=== PATIENT | female | born 1940 | race Caucasian/White ===

== ENCOUNTER 2018-12-15 20:11 | Emergency (ER) | payer MEDICARE, OTHER ==
[~2018-12-15] VITALS: Ht 162.6 cm; Wt 86.2 kg
[~2018-12-15 20:11] MED LIST: ASPI325 PO; ASPI81CH PO; CHOL10002; CHOL10002 PO; DIPH50 PO; ESOM20 PO; FERROUS FUMARAT89 MG PO; HYDR1TAB94 PO; OMEP20ER; OXYACE5T PO; Omeprazole20 M1 PO; QUIN10 PO; Sleep Aid25 M1 PO; TRIHYD253A PO; XARELTO10 MG PO; ZOLP10 PO; ZOLP12.5 PO
== END 2018-12-15 21:56 | disposition home or self-care (01) ==
LOC: ER 20:11
DX: S01.81XA Laceration without foreign body of other part of head, initial encounter (principal); S61.210A Laceration without foreign body of right index finger without damage to nail, initial encounter; W18.30XA Fall on same level, unspecified, initial encounter; Z88.5 Allergy status to narcotic agent; Z79.899 Other long term (current) drug therapy
CPT/HCPCS: 12001; 12013; 70450; 72125; 99284-25

== ENCOUNTER 2020-03-12 09:31 | Day surgery (SDC) | payer MEDICARE, OTHER ==
[~2020-03-12 09:31] MED LIST changes: +Dyazide 37.5-21 EACH PO; +ELIQUIS5 MG PO; +METO25ER PO; +Quinapril HCl20 MG PO; +VITAMIN D-32000 UNIT PO; +[UNRECOGNIZED DRUG - OTHER] PO
== END 2020-03-12 10:20 | disposition home or self-care (01) ==
LOC: ORSCSDS 09:31
DX: D50.9 Iron deficiency anemia, unspecified (principal); K92.1 Melena; Z86.010 Personal history of colon polyps; Z53.9 Procedure and treatment not carried out, unspecified reason
CPT/HCPCS: J2704; J7120

== ENCOUNTER → 2020-11-25 | Outpatient (CLI) | payer MEDICARE, OTHER ==
[~2020-11-25] MED LIST changes: +HYDROCHLOROTH12.5 MG
[2020-11-25 19:52] LABS: Appearance, Urine Turbid (Clear); Bilirubin, Urine Neg (Neg); Blood, Urine 2+ (Neg); Color, Urine Yellow (P-Yellow); Glucose Qualitative, Urine Neg (Neg); Ketones, Urine Neg (Neg); Leukocyte Esterase, Urine 3+ (Neg); Nitrite, Urine Pos (Neg); Protein, Urine 2+ (Neg); Specific Gravity, Urine 1.015 (1.003-1.022); Urobilinogen, Urine NORM (Normal)
[2020-11-25 20:02] LABS: Bacteria Many /hpf; White Blood Cells, Urine 25-50 /hpf (0-5)
[2020-11-25 20:03] LABS: Amorphous Mod (0-Heavy); Squamous Epithelial Cells Few /hpf (Few)
== END | disposition home or self-care (01) ==
LOC: LAB SHORT 18:42 → LAB 18:42
PROVIDERS: Internal Medicine
DX: R30.0 Dysuria (principal)
CPT/HCPCS: 81001; 87077; 87086; 87186